=== PATIENT | male | born 1995 | race African-American/Black ===

== ENCOUNTER 2016-12-01 04:16 | Emergency (ER) | payer OTHER, MEDICAID ==
[~2016-12-01] VITALS: Ht 172.7 cm; Wt 53.5 kg
[~2016-12-01 04:16] MED LIST: ALBUTEROL SULF8.5 GM INH; ALBUTEROL2.5 MG/3 M INH; AZITHROMYCIN250 MG ORAL; PREDNISONE10 MG ORAL; PREDNISONE20 MG ORAL; PROAIR HFA8.5 GM INH; SINGULAIR10 MG ORAL; TYLENOL325 MG ORAL; ZITHROMAX250 MG ORAL
[2016-12-01] MEDS ORDERED: Albuterol ud Inhalation ONE (04:33)
[2016-12-01] MEDS ORDERED: Ipratropium 0.02% Inh Soln 2.5ml UD ONE (04:33)
[2016-12-01] MEDS ORDERED: PredniSONE 20mg tab ONE (04:34)
[2016-12-01 04:40] VITALS: BP 144/76
[2016-12-01] MEDS ORDERED: ALBUTEROL SULF8.5 GM INH (04:42)
[2016-12-01] MEDS ORDERED: DULERA 200 MCG/13 GM IH (04:42)
[2016-12-01] MEDS ORDERED: PREDNISONE20 MG ORAL (04:42)
--- NOTE | 2016-12-01 04:42 | Emergency Room Report ---
History of Present Illness General Chief Complaint: Asthma Source: Patient Present Illness HPI Is a 21-year-old male with history of asthma. He presents with chief complaint of asthma exacerbation. Onset for last couple days. He is out of his inhaler. Is asked was not well controlled. He goes through at least one to 2 inhalers a month. Not on a steroid inhaler. He thinks the cold weather is causing his asthma to act up. Denies any fever chills denies any nausea vomiting. Worse with inspiration and walking. Allergies: Coded Allergies: No Known Allergies (Unverified , 05/06/14) Patient History Past Medical History: see triage record, old chart reviewed, asthma Past Surgical History: none Pertinent Family History: none Social History: Denies: smoking Immunizations: other Reviewed Nursing Documentation: PMH: Agreed, PSxH: Agreed Nursing Documentation-PMH Past Medical History: No History, Except For Hx Asthma: Yes Review of Systems Eye: Denies: blurred vision, eye pain ENT: Denies: ear pain, nose congestion, throat swelling Respiratory: Reports: cough, shortness of breath, wheezing Cardiovascular: Denies: chest pain, palpitations Gastrointestinal: Denies: abdominal pain, diarrhea, nausea, vomiting Musculoskeletal: Denies: back pain, joint pain Skin: Denies: rash Neurological: Denies: headache, numbness Endocrine: Denies: increased thirst, increased urine Hematologic/Lymphatic: Denies: easy bruising All Other Systems: negative except mentioned in HPI Physical Exam Vital Signs Date Time Temp Pulse Resp B/P Pulse Ox O2 Delivery O2 Flow Rate FiO2 12/01/16 04:27 98.1 82 12 144/76 96 Room Air vitals normal Sp02 EP Interpretation: reviewed, normal General Appearance: well appearing, no apparent distress, alert Head: normocephalic, atraumatic Eyes: bilateral eye EOMI, bilateral eye PERRL ENT: hearing grossly normal, normal pharynx Neck: full range of motion, supple, no meningismus Respiratory: chest non-tender, wheezing Cardiovascular #1: regular rate, rhythm, no murmur Gastrointestinal: normal bowel sounds, non tender, no mass, no organomegaly, no bruit, non-distended Musculoskeletal: back normal, gait/station normal, normal range of motion Psychiatric: mood/affect normal Skin: warm/dry Medical Decision Making Diagnostic Impression: Primary Impression: Asthma attack ER Course Patient poorly controlled asthma. He has wheezing. This resulted treatment. We'll put on steroid. He will need a steroid inhaler also. No evidence of respiratory distress or pneumonia. Last Vital Signs Date Time Temp Pulse Resp B/P Pulse Ox O2 Delivery O2 Flow Rate FiO2 12/01/16 04:27 98.1 82 12 144/76 96 Room Air Status: improved Disposition: HOME, SELF-CARE Condition: Stable Scripts Mometasone/Formoterol (DULERA 200 MCG/5 MCG INHALER) 13 Gm Hfa.aer.ad 13 GM IH BID, #1 UNIT Prov: ECHO WELLS M.D. 12/01/16 Prednisone* (PREDNISONE*) 20 Mg Tablet 60 MG ORAL DAILY, #12 TAB Prov: ECHO WELLS M.D. 12/01/16 Albuterol Sulfate* (ALBUTEROL SULFATE MDI*) 8.5 Gm Hfa.aer.ad 2 PUFF INH Q4H Y for cough/wheezing, #1 EA 0 Refills Prov: ECHO WELLS M.D. 12/01/16 Patient Instructions: Asthma, Adult Additional Instructions: Followup your DrMichelle in 7 days. Return if symptom worsen. ECHO WELLS M.D. December 01, 2016 04:42
[2016-12-01] MEDS ORDERED: PredniSONE 20mg tab ORAL ONE (04:45)
[2016-12-01] MEDS ORDERED: Ipratropium 0.02% Inh Soln 2.5ml UD HHN ONE (04:45)
[2016-12-01] MEDS ORDERED: Albuterol ud Inhalation HHN ONE (04:45)
[2016-12-01 05:14] VITALS: BP 118/75
== END 2016-12-01 05:14 | disposition home or self-care (01) ==
LOC: EMR 04:52
DX: J45.901 Unspecified asthma with (acute) exacerbation (principal)
CPT/HCPCS: 94640; 94664; 99284

== ENCOUNTER 2017-05-16 13:43 | Emergency (ER) | payer MEDICAID, OTHER ==
[~2017-05-16] VITALS: Ht 172.7 cm; Wt 53.5 kg
[~2017-05-16 13:43] MED LIST changes: +DULERA 200 MCG/13 GM IH
[2017-05-16 13:47] VITALS: BP 127/82
[2017-05-16] MEDS ORDERED: Albuterol ud Inhalation HHN ONE ×2 (14:00→14:30)
--- NOTE | 2017-05-16 14:20 | Emergency Room Report ---
History of Present Illness General Chief Complaint: Upper Respiratory Illness Source: Patient, Medical Record Present Illness HPI 21YOM walk-in with 2 days of cough runny nose and chest tightness. Patient does not smoke, has known asthma, only uses rescue inhaler as needed for asthma attacks. Patient was here in November for similar asthma exacerbation. Was given dulera by Dr Ramon but took for 1 month then stopped when ran out. Denies fever/chills, chest pain. has not followed up with PMD since Allergies: Coded Allergies: No Known Allergies (Unverified , 05/06/14) Patient History Past Medical History: asthma Past Surgical History: none Pertinent Family History: none Social History: Denies: smoking, alcohol use, drug use Immunizations: UTD Reviewed Nursing Documentation: PMH: Agreed, PSxH: Agreed Nursing Documentation-PMH Past Medical History: No History, Except For Hx Asthma: Yes Review of Systems All Other Systems: negative except mentioned in HPI Physical Exam Vital Signs Date Time Temp Pulse Resp B/P (MAP) Pulse Ox O2 Delivery O2 Flow Rate FiO2 05/16/17 13:45 98.1 114 18 127/82 94 Room Air 05/16/17 14:07 21 Sp02 EP Interpretation: reviewed, abnormal General Appearance: normal inspection, well appearing, no apparent distress, alert, GCS 15, non-toxic, other - Sitting upright, speaking full sentences, using iphone Head: normocephalic, atraumatic ENT: normal ENT inspection, hearing grossly normal, normal voice Neck: normal inspection, full range of motion, supple, no bony tend Respiratory: normal inspection, lungs clear, normal breath sounds, no respiratory distress, no retraction, no accessory muscle use, no wheezing, speaking full sentences, wheezing Cardiovascular #1: regular rate, rhythm, no edema Gastrointestinal: normal inspection, normal bowel sounds, non tender, soft, no guarding, no hernia Genitourinary: no CVA tenderness Musculoskeletal: normal inspection, back normal, normal range of motion, Perri' s Sign negative Neurologic: normal inspection, alert, oriented x3, responsive, gas scrubber operator III-XII nml as tested, speech normal Psychiatric: normal inspection, judgement/insight normal, mood/affect normal Skin: normal inspection, normal color, no rash Medical Decision Making Diagnostic Impression: Primary Impression: Asthma attack Qualified Codes: J45.21 - Mild intermittent asthma with (acute) exacerbation Additional Impression: Upper respiratory infection Qualified Codes: J06.9 - Acute upper respiratory infection, unspecified ER Course VSS. Afebrile Mild hypoxia Afebrile, no fever/chills, unlikely PNA Likely URI as cause of asthma exacerbation Improved after 2 albuterol, prednisone Rx prednisone for 4 more days Refilled BR[facility] PMD followup Last Vital Signs Date Time Temp Pulse Resp B/P (MAP) Pulse Ox O2 Delivery O2 Flow Rate FiO2 05/16/17 14:07 112 20 98 Room Air 21 05/16/17 13:47 98.1 127/82 Status: improved Disposition: HOME, SELF-CARE ZARINA VILCHIS M.D. May 16, 2017 14:20
[2017-05-16] MEDS ORDERED: ALBUTEROL SULF8.5 GM INH (14:22)
[2017-05-16] MEDS ORDERED: PREDNISONE20 MG ORAL (14:22)
[2017-05-16] MEDS ORDERED: DULERA 200 MCG/13 GM IH (14:22)
[2017-05-16 14:34] VITALS: BP 120/75
== END 2017-05-16 14:34 | disposition home or self-care (01) ==
LOC: EMR 14:20
DX: J45.901 Unspecified asthma with (acute) exacerbation (principal); J06.9 Acute upper respiratory infection, unspecified
CPT/HCPCS: 94640; 99282

== ENCOUNTER 2017-07-13 00:31 | Emergency (ER) | payer OTHER ==
[~2017-07-13] VITALS: Ht 172.7 cm; Wt 53.5 kg
[2017-07-13 00:40] VITALS: BP 121/83
[2017-07-13] MEDS ORDERED: Albuterol/Ipratropium 3ml neb ONE (00:46)
[2017-07-13] MEDS ORDERED: Albuterol/Ipratropium 3ml neb HHN ONE (01:00)
[2017-07-13] MEDS ORDERED: DULERA 200 MCG/13 GM IH (01:11)
[2017-07-13] MEDS ORDERED: PREDNISONE20 MG ORAL (01:11)
[2017-07-13] MEDS ORDERED: ALBUTEROL SULF8.5 GM INH (01:11)
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
[2017-07-13 01:18] VITALS: BP 121/83
== END 2017-07-13 01:18 | disposition home or self-care (01) ==
LOC: EMR 00:48
DX: J45.21 Mild intermittent asthma with (acute) exacerbation (principal)
CPT/HCPCS: 94640; 99284; J7512; J7620

== ENCOUNTER 2017-10-10 03:10 | Emergency (ER) | payer OTHER ==
[~2017-10-10] VITALS: Ht 172.7 cm; Wt 53.5 kg
--- NOTE | 2017-10-10 03:15 | Emergency Room Report ---
History of Present Illness General Chief Complaint: To Be Triaged Source: Patient Present Illness HPI 22-year-old male with acute asthma exacerbation Resents with cough, chest tightness Ran out of home medication No recent URI, flulike symptoms, fever chills Multiple visits to ER for similar Allergies: Coded Allergies: No Known Allergies (Unverified , 05/06/14) Patient History Past Medical History: asthma Past Surgical History: none Pertinent Family History: none Social History: Denies: smoking, alcohol use, drug use Reviewed Nursing Documentation: PMH: Agreed; PSxH: Agreed Nursing Documentation-PMH Hx Asthma: Yes Review of Systems All Other Systems: negative except mentioned in HPI Physical Exam Sp02 EP Interpretation: reviewed, normal General Appearance: normal inspection, well appearing, no apparent distress, alert, GCS 15, non-toxic Head: normocephalic, atraumatic Eyes: bilateral eye PERRL, bilateral eye EOMI ENT: normal ENT inspection, hearing grossly normal, normal pharynx, no angioedema, normal voice, TMs + canals normal, uvula midline, moist mucus membranes Neck: normal inspection, full range of motion, supple, thyroid normal, no meningismus, no bony tend Respiratory: normal inspection, lungs clear, normal breath sounds, no rhonchi, no respiratory distress, no retraction, no accessory muscle use, speaking full sentences, wheezing Cardiovascular #1: regular rate, rhythm, no edema, no JVD, normal capillary refill Gastrointestinal: normal inspection, normal bowel sounds, non tender, soft, no mass, no peritonitis, non-distended, no guarding, no hernia, no pulsatile mass Genitourinary: no CVA tenderness Musculoskeletal: normal inspection, back normal, normal range of motion, no calf tenderness, pelvis stable, Perri's Sign negative Neurologic: normal inspection, alert, oriented x3, responsive, ash collector III-XII nml as tested, motor strength/tone normal, cerebellar normal, normal gait, speech normal Psychiatric: normal inspection, judgement/insight normal, mood/affect normal, no suicidal/homicidal ideation, no delusions Skin: normal inspection, normal color, no rash Lymphatic: normal inspection, no adenopathy Medical Decision Making Diagnostic Impression: Primary Impression: Asthma attack Qualified Codes: J45.21 - Mild intermittent asthma with (acute) exacerbation ER Course Vital signs stable, afebrile Mild wheezing on exam No tachypnea, hypoxia Low suspicion for acute pneumonia, sepsis improved with nebs steroids ER course: Patient has remained stable during ED stay. Disposition: Patient is to be discharged to home. Prescriptions given are ventolin, prednisone, advair Patient is instructed to follow up with their primary care doctor within 5 days. Strict return precautions discussed with patient such as fever, chills, worsening/severe pain, nausea, vomiting, which may indicate severe illness. Patient verbalizes understanding and agrees with plan. Please note that this Emergency Department Report was dictated using [employer] inspector technology software, occasionally this can lead to erroneous entry secondary to interpretation by the dictation equipment Status: improved Disposition: HOME, SELF-CARE Scripts Albuterol Sulfate (VENTOLIN HFA) 18 Gm Hfa.aer.ad 1 PUFF INH EVERY 6 HOURS, #18 GM 0 Refills Prov: ZARINA VILCHIS M.D. 10/10/17 Prednisone* (PREDNISONE*) 20 Mg Tablet 40 MG ORAL DAILY for 5 Days, #10 TAB Prov: ZARINA VILCHIS M.D. 10/10/17 Fluticasone/Salmeterol (Advair 100-50 Diskus) 1 Each Blst.w.dev 1 PUFF INH TWICE A DAY for 30 Days, #1 EA Prov: ZARINA VILCHIS M.D. 10/10/17 ZARINA VILCHIS M.D. Oct 10, 2017 03:15
[2017-10-10] MEDS ORDERED: VENTOLIN HFA18 GM INH (03:16)
[2017-10-10] MEDS ORDERED: ADVAIR 100-501 EACH INH (03:16)
[2017-10-10] MEDS ORDERED: PREDNISONE20 MG ORAL (03:16)
[2017-10-10 03:29] VITALS: BP 121/80
[2017-10-10] MEDS ORDERED: Albuterol ud Inhalation HHN ONE (03:30)
== END 2017-10-10 03:40 | disposition home or self-care (01) ==
LOC: EMR 03:15
DX: J45.901 Unspecified asthma with (acute) exacerbation (principal)
CPT/HCPCS: 94640; 99284; J7512

== ENCOUNTER 2018-05-28 02:02 | Emergency (ER) | payer OTHER ==
[~2018-05-28] VITALS: Ht 172.7 cm; Wt 53.5 kg
[~2018-05-28 02:02] MED LIST changes: +ADVAIR 100-501 EACH INH; +VENTOLIN HFA18 GM INH
[2018-05-28 02:15] VITALS: BP 135/93
[2018-05-28] MEDS ORDERED: ALBUTEROL SULF8.5 GM INH (02:37)
[2018-05-28] MEDS ORDERED: SPIRIVA18 MCG INH (02:37)
[2018-05-28] MEDS ORDERED: PREDNISONE20 MG ORAL (02:38)
--- NOTE | 2018-05-28 02:38 | Emergency Room Report ---
History of Present Illness General Chief Complaint: Asthma Source: Patient Present Illness HPI Is a 22-year-old male who has a history of asthma. He goes to one albuterol inhaler a month. He presents with chief complaint of shortness of breath. Started tonight. He is out of his inhaler for about a week. No fever or chills. No nausea no vomiting. Worse with exertion. Similar symptom in the past. No chest pain. No cough or congestion. Not on steroid inhaler. Allergies: Coded Allergies: No Known Allergies (Unverified , 05/06/14) Patient History Past Medical History: see triage record, old chart reviewed Past Surgical History: none Pertinent Family History: none Social History: Denies: smoking Immunizations: other Reviewed Nursing Documentation: PMH: Agreed; PSxH: Agreed Nursing Documentation-PMH Hx Asthma: Yes Review of Systems Eye: Denies: eye pain, blurred vision ENT: Denies: ear pain, nose congestion, throat swelling Respiratory: Reports: shortness of breath, wheezing Cardiovascular: Denies: chest pain, palpitations Gastrointestinal: Denies: abdominal pain, diarrhea, nausea, vomiting Musculoskeletal: Denies: back pain, joint pain Skin: Denies: rash Neurological: Denies: headache, numbness Endocrine: Denies: increased thirst, increased urine Hematologic/Lymphatic: Denies: easy bruising All Other Systems: negative except mentioned in HPI Physical Exam Vital Signs Date Time Temp Pulse Resp B/P (MAP) Pulse Ox O2 Delivery O2 Flow Rate FiO2 05/28/18 02:16 98.4 91 14 135/98 98 Room Air vitals normal Sp02 EP Interpretation: reviewed, normal General Appearance: well appearing, no apparent distress, alert Head: normocephalic, atraumatic Eyes: bilateral eye PERRL, bilateral eye EOMI ENT: hearing grossly normal, normal pharynx Neck: full range of motion, supple, no meningismus Respiratory: chest non-tender, normal breath sounds, decreased breath sounds, accessory muscle use, wheezing Cardiovascular #1: regular rate, rhythm, no murmur Gastrointestinal: normal bowel sounds, non tender, no mass, no organomegaly, no bruit, non-distended Musculoskeletal: back normal, gait/station normal, normal range of motion Psychiatric: mood/affect normal Skin: warm/dry Medical Decision Making Diagnostic Impression: Primary Impression: Asthma exacerbation, mild ER Course Patient with asthma exacerbation. Better after neb treatment. No evidence of PE, ACS, dissection to name a few. We'll discharge home. Last Vital Signs Date Time Temp Pulse Resp B/P (MAP) Pulse Ox O2 Delivery O2 Flow Rate FiO2 05/28/18 02:16 98.4 91 14 135/98 98 Room Air Status: improved Disposition: HOME, SELF-CARE Condition: Stable Scripts Prednisone* (PREDNISONE*) 20 Mg Tablet 60 MG ORAL DAILY, #12 TAB Prov: Roger Ramon MD 05/28/18 Tiotropium [place]* (SPIRIVA*) 18 Mcg Cap.w.dev 1 PUFF INH DAILY, #1 EA Prov: Roger Ramon MD 05/28/18 Albuterol Sulfate* (ALBUTEROL SULFATE MDI*) 8.5 Gm Hfa.aer.ad 2 PUFF INH Q4H PRN for cough/wheezing, #1 EA 0 Refills Prov: Roger Ramon MD 05/28/18 Patient Instructions: Asthma, Adult Additional Instructions: Follow-up with your doctor in 5-7 days. Return if symptom worsen. Roger Ramon MD May 28, 2018 02:38
[2018-05-28] MEDS ORDERED: Albuterol/Ipratropium 3ml neb HHN ONE (02:45)
[2018-05-28 02:54] VITALS: BP 135/98
== END 2018-05-28 02:54 | disposition home or self-care (01) ==
LOC: EMR 02:38
DX: J45.901 Unspecified asthma with (acute) exacerbation (principal)
CPT/HCPCS: 94640; 99284; J7512; J7620

== ENCOUNTER 2019-05-23 02:43 | Emergency (ER) | payer OTHER ==
[~2019-05-23] VITALS: Ht 172.7 cm; Wt 54.9 kg
[~2019-05-23 02:43] MED LIST changes: +SPIRIVA18 MCG INH
--- NOTE | 2019-05-23 02:56 | NUR ---
ED Nurse Note: pt prsents to ED with chest tightness and SOB. pt has a h/o asthma and has been out of his inhaler for 3 weeks. pt reports feeling the chest tightness x 1 week. it is worse at night when he is trying to sleep. pt denies any pain or other symptoms at this time. pt has wheezes bilaterally on ausculatiion. upon expiration on the R and with both inspiration and expiration on the L side Addendum: 05/23/19 at 0308 by STUART pt SpO2 is 98% on room air, he is able to speak full sentences
[2019-05-23 03:00] VITALS: BP 128/73
[2019-05-23] MEDS ORDERED: Albuterol/Ipratropium 3ml neb HHN ONE (03:00)
--- NOTE | 2019-05-23 03:02 | NUR ---
ED Nurse Note: respiratory therapy is at pt's bedside for a breathing treatment
[2019-05-23] MEDS ORDERED: PREDNISONE20 MG ORAL (03:06)
[2019-05-23] MEDS ORDERED: ALBUTEROL SULF8.5 GM INH (03:06)
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
--- NOTE | 2019-05-23 03:18 | NUR ---
ED Nurse Note: pt has finished breathing treatment, lungs sound clear bilaterally. even and unlabored breathing, SpO2 is 100% on room air
[2019-05-23 03:20] VITALS: BP 128/73
--- NOTE | 2019-05-23 03:25 | NUR ---
ED Nurse Note: Pt cleared by health care Provider for discharge. DC instructions/prescription was given and explained to pt who verbalized understanding of teachings. All medical deviecs such as ID band removed. Pt is AAO x4, ambulatory and left with all personal belongings.
== END 2019-05-23 03:25 | disposition home or self-care (01) ==
LOC: EMR 03:00
DX: J45.21 Mild intermittent asthma with (acute) exacerbation (principal); Z79.51 Long term (current) use of inhaled steroids
CPT/HCPCS: 94640; 99284; J7512; J7620

== ENCOUNTER 2019-10-03 03:15 | Emergency (ER) | payer OTHER ==
[~2019-10-03] VITALS: Ht 172.7 cm; Wt 54.0 kg
--- NOTE | 2019-10-03 03:24 | NUR ---
ED Nurse Note: Pt ambulated to ED from home c/o sore throat and sins pressure x3 days, denies fever/cough. VSS pt has been taking sudphed at home without relief
[2019-10-03 03:25] VITALS: BP 138/94
[2019-10-03 03:45] VITALS: BP 138/94
--- NOTE | 2019-10-03 03:45 | NUR ---
ER DISCHARGE NOTE: Patient is cleared to be discharged per ERMD, pt is aox4, on room air, with stable vital signs. pt was given dc and prescription instructions, pt was able to verbalize understanding, pt id band removed. pt is able to ambulate with steady gait. pt took all belongings.
--- NOTE | 2019-10-03 04:51 | Emergency Room Report ---
History of Present Illness General Chief Complaint: Sore Throat Source: Patient Present Illness HPI 24-year-old male presents ED complaining of sore throat x2 days. Pain is dull, 5 out of 10, nonradiating. Denies cough. Notes congestion. Denies fevers or chills. Denies sick contacts or recent travel. No other aggravating relieving factors. Denies any other associated symptoms COVID-19 risk:Travel to affect: No Allergies: Coded Allergies: No Known Allergies (Unverified , 05/06/14) Patient History Past Medical History: asthma Past Surgical History: none Pertinent Family History: none Social History: Denies: smoking, alcohol use, drug use Immunizations: UTD Reviewed Nursing Documentation: PMH: Agreed; PSxH: Agreed Nursing Documentation-PMH Hx Asthma: Yes Review of Systems All Other Systems: negative except mentioned in HPI Physical Exam Vital Signs Date Time Temp Pulse Resp B/P (MAP) Pulse Ox O2 Delivery O2 Flow Rate FiO2 10/03/19 03:16 98.8 80 18 138/94 (109) 99 Room Air Sp02 EP Interpretation: reviewed, normal General Appearance: no apparent distress, alert, GCS 15, non-toxic Head: normocephalic, atraumatic Eyes: bilateral eye normal inspection, bilateral eye PERRL ENT: hearing grossly normal, normal pharynx, no angioedema, normal voice Neck: full range of motion, supple/symm/no masses Respiratory: chest non-tender, lungs clear, normal breath sounds, speaking full sentences Cardiovascular #1: regular rate, rhythm, no edema Cardiovascular #2: 2+ carotid (R), 2+ carotid (L), 2+ radial (R), 2+ radial (L) , 2+ dorsalis pedis (R), 2+ dorsalis pedis (L) Gastrointestinal: normal bowel sounds, non tender, soft, non-distended, no guarding, no rebound Rectal: deferred Genitourinary: normal inspection, no CVA tenderness Musculoskeletal: back normal, normal range of motion, gait/station normal, non- tender Neurologic: alert, motor strength/tone normal, oriented x3, sensory intact, responsive, speech normal Psychiatric: judgement/insight normal, memory normal, mood/affect normal, no suicidal/homicidal ideation Reflexes: 3+ bicep (R), 3+ bicep (L), 3+ tricep (R), 3+ tricep (L), 3+ knee (R) , 3+ knee (L) Lymphatic: no adenopathy Medical Decision Making Diagnostic Impression: Primary Impression: URI (upper respiratory infection) Qualified Codes: J06.9 - Acute upper respiratory infection, unspecified ER Course Hospital Course 24 yo M presents c/o congestion, sore throat Differential diagnoses include: URI, pharyngitis, otitis media, asthma Clinical course Patient placed on stretcher. After initial history, physical exam reveals a male in no acute distress. Bilateral TM unremarkable. No pharyngeal erythema. No tonsillar exudates. No lymphadenopathy. lungs clear. abdomen soft. Clinical findings consistent with URI. Reassurance given. course is viral and self-limited. Patient afebrile, nontoxic-appearing. Safe for discharge with close outpatient follow-up. I will provide referrals Diagnosis - URI Stable and discharged home. Instructed to followup with PMD. Return to ED if symptoms recur or worsen Last Vital Signs Date Time Temp Pulse Resp B/P (MAP) Pulse Ox O2 Delivery O2 Flow Rate FiO2 10/03/19 03:45 98.8 77 18 138/94 99 Room Air Status: improved Disposition: HOME, SELF-CARE Condition: Stable Referrals: FINN MCCORMICK,REFERRING (PCP) [facility] Patient Instructions: Upper Respiratory Infection, Adult, [id number] Fly Lopez MD Oct 03, 2019 04:51
== END 2019-10-03 03:45 | disposition home or self-care (01) ==
LOC: EMR 03:40
DX: J06.9 Acute upper respiratory infection, unspecified (principal)
CPT/HCPCS: 99281

== ENCOUNTER 2020-03-19 22:32 | Emergency (ER) | payer OTHER ==
[~2020-03-19] VITALS: Ht 172.7 cm; Wt 54.4 kg
--- NOTE | 2020-03-19 22:44 | NUR ---
ED Nurse Note: Pt ambulated to ED from home c/o blood in his stool starting today, denies fever/N/V or diarrhea or abdominal pain. Pt denies having these symptoms previously. PT SERGEI FUENTES at bedside
--- NOTE | 2020-03-19 22:51 | Emergency Room Report ---
History of Present Illness General Chief Complaint: Gastrointestinal Illness Source: Patient Present Illness HPI This is a 24-year-old male with a history of asthma. He presents with chief complaint of blood in his stool. He said the last couple day he had some hard stool. Tonight he had a bowel movement and when he looked into the toilet bowl , he saw that stool was very dark and there was blood around it. He denies any pain. Denies any trauma. No fever chills but no nausea no vomiting. No epigastric pain. Nothing made it better. Nothing made it worse. This the first time this happened to him. Allergies: Coded Allergies: No Known Allergies (Unverified , 05/06/14) COVID-19 Screening Contact w/high risk pt: No Experienced COVID-19 symptoms?: No COVID-19 Testing performed [employer] CON[employer]OR [employer]T REPAIRER: No Patient History Past Medical History: see triage record, old chart reviewed, asthma Past Surgical History: none Pertinent Family History: none Social History: Denies: smoking Immunizations: other Reviewed Nursing Documentation: PMH: Agreed; PSxH: Agreed Nursing Documentation-PMH Hx Asthma: Yes Review of Systems Eye: Denies: eye pain, blurred vision ENT: Denies: ear pain, nose congestion, throat swelling Respiratory: Denies: cough, shortness of breath Cardiovascular: Denies: chest pain, palpitations Gastrointestinal: Denies: abdominal pain, diarrhea, nausea, vomiting Musculoskeletal: Denies: back pain, joint pain Skin: Denies: rash Neurological: Denies: headache, numbness Endocrine: Denies: increased thirst, increased urine Hematologic/Lymphatic: Denies: easy bruising All Other Systems: negative except mentioned in HPI Physical Exam Vital Signs Date Time Temp Pulse Resp B/P (MAP) Pulse Ox O2 Delivery O2 Flow Rate FiO2 03/19/20 22:34 97.9 85 16 149/77 (101) 98 Room Air Vitals with high blood pressure Sp02 EP Interpretation: reviewed, normal General Appearance: well appearing, no apparent distress, alert Head: normocephalic, atraumatic Eyes: bilateral eye PERRL, bilateral eye EOMI ENT: hearing grossly normal, normal pharynx Neck: full range of motion, supple, no meningismus Respiratory: chest non-tender, lungs clear, normal breath sounds Cardiovascular #1: regular rate, rhythm, no murmur Gastrointestinal: normal bowel sounds, non tender, no mass, no organomegaly, no bruit, non-distended Rectal: normal rectal tone, other - Rectal exam showed normal tone. Stool is dark and there is blood on the stool. Musculoskeletal: back normal, normal range of motion, gait/station normal Psychiatric: mood/affect normal Medical Decision Making Diagnostic Impression: Primary Impression: Rectal bleeding ER Course Patient presents with rectal bleeding. May be internal hemorrhoid. Hemoglobin stable. No evidence of upper GI bleeding. Will discharge home. Last Vital Signs Date Time Temp Pulse Resp B/P (MAP) Pulse Ox O2 Delivery O2 Flow Rate FiO2 03/19/20 22:34 97.9 85 16 149/77 (101) 98 Room Air Status: improved Disposition: HOME, SELF-CARE Condition: Stable Scripts Hydrocortisone Acetate* (ANUSOL-HC*) 25 Mg Supp.rect 1 SUPP RECTAL TWICE A DAY, #7 SUPP Prov: Roger Ramon MD 03/19/20 Additional Instructions: Increase fiber. Follow-up with your doctor in 7 days. You may need referral to see colorectal surgeon if continue to have rectal bleeding. Return if worse. Roger Ramon MD Mar 19, 2020 22:51
[2020-03-19 23:01] LABS: BASOPHILS % (AUTO) 1.6 % (0.0-2.0); EOSINOPHILS % (AUTO) 4.4 % (0.0-3.0); HEMOGLOBIN 16.3 G/DL (14.2-18.0); LYMPHOCYTES % (AUTO) 47.3 % (20.0-45.0); MEAN CORPUSCULAR VOLUME 86 FL (80-99); MONOCYTES % (AUTO) 8.1 % (1.0-10.0); NEUTROPHILS % (AUTO) 38.6 % (45.0-75.0); PLATELET COUNT 204 K/UL (150-450); RED BLOOD COUNT 5.58 M/UL (4.70-6.10); RED CELL DISTRIBUTION WIDTH 11.7 % (11.6-14.8); WHITE BLOOD COUNT 5.2 K/UL (4.8-10.8)
[2020-03-19 23:02] VITALS: BP 149/77
--- NOTE | 2020-03-19 23:02 | NUR ---
ED Nurse Note: Blood sent to lab
[2020-03-19] MEDS ORDERED: ANUSOL-HC25 MG RECTAL (23:41)
[2020-03-19 23:49] VITALS: BP 132/70
== END 2020-03-19 23:50 | disposition home or self-care (01) ==
LOC: CANBEDREQ 22:49 → EMR 23:00
DX: K62.5 Hemorrhage of anus and rectum (principal)
CPT/HCPCS: 36415; 85025; 99283

== ENCOUNTER 2020-06-22 09:29 | Emergency (ER) | payer OTHER ==
[~2020-06-22] VITALS: Ht 172.7 cm; Wt 53.5 kg
[~2020-06-22 09:29] MED LIST changes: +ANUSOL-HC25 MG RECTAL
[2020-06-22 09:45] VITALS: BP 129/88
--- NOTE | 2020-06-22 09:46 | NUR ---
ED Nurse Note: Patient walked in to ED c/o sinus infection x4 days after eating dairy products. Pt is allergic to dairy. Reports chest congestion. nad noted, vss, calm and cooperative. denies pain at this time. o2 100% on room air, respirations even and unlabored, no cough.
[2020-06-22] MEDS ORDERED: NASONEX17 GM NASAL (10:05)
--- NOTE | 2020-06-22 10:09 | NUR ---
ED Nurse Note: Patient cleared by health care Provider for discharge. DC instructions was given and explained to pt and verbalized understanding of teachings. All medical deviecs such as ID band removed. Pt is AAO x4, ambulatory and left with all personal belongings.
--- NOTE | 2020-06-22 10:11 | Emergency Room Report ---
History of Present Illness General Chief Complaint: Upper Respiratory Illness Source: Patient Present Illness HPI Is a 24-year-old male presents for increased nasal congestion. Onset of symptoms with the past few days. Increased nasal discharge. Patient been using [id number] nasal saline. Denies any fever or weakness. Prior history of asthma as well as allergic lactose intolerance. Reports having a recent dairy intake. Thinks that this may have exacerbated the nasal congestion. Denies any fever. Reports having intermittent increased phlegm production. No facial pain. 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 Patient History Past Medical History: see triage record Reviewed Nursing Documentation: PMH: Agreed; PSxH: Agreed Nursing Documentation-PMH Hx Asthma: Yes Review of Systems All Other Systems: negative except mentioned in HPI Physical Exam Vital Signs Date Time Temp Pulse Resp B/P (MAP) Pulse Ox O2 Delivery O2 Flow Rate FiO2 06/22/20 09:36 98.6 98 19 129/88 (102) 98 Room Air Sp02 EP Interpretation: reviewed, normal General Appearance: normal inspection, well appearing, no apparent distress, alert, GCS 15 Head: atraumatic ENT: normal ENT inspection, hearing grossly normal, normal voice, other - Increased nasal congestion without evidence of discharge. No sinus tenderness noted. Neck: normal inspection, full range of motion, supple, no bony tend Respiratory: normal inspection, lungs clear, normal breath sounds, no respiratory distress, no retraction, no wheezing Cardiovascular #1: regular rate, rhythm, no edema Gastrointestinal: normal inspection, normal bowel sounds, non tender, soft, no guarding, no hernia Genitourinary: no CVA tenderness Musculoskeletal: normal inspection, back normal, normal range of motion Neurologic: alert, responsive, speech normal, normal inspection Psychiatric: normal inspection, judgement/insight normal, mood/affect normal Medical Decision Making Diagnostic Impression: Primary Impression: Allergic rhinitis ER Course Patient presented for increased nasal congestion. Differential diagnosis include is not limited to allergic rhinitis, sinusitis, upper respiratory infection, coronavirus infection among others. Patient has a benign exam and does not appear to require any imaging or laboratory testing at this time. Last Vital Signs Date Time Temp Pulse Resp B/P (MAP) Pulse Ox O2 Delivery O2 Flow Rate FiO2 06/22/20 09:45 98 19 Room Air 06/22/20 09:45 98.6 129/88 98 Status: improved Disposition: HOME, SELF-CARE Condition: Stable Scripts Mometasone Furoate (NASONEX) 17 Gm [place].pump 2 SPRAYS NASAL DAILY, #1 GM 0 Refills Prov: Demond Loredo MD 06/22/20 Patient Instructions: Allergic Rhinitis Additional Instructions: Follow up with your doctor for recheck. Return if worse. Demond Loredo MD Jun 22, 2020 10:11
== END 2020-06-22 10:10 | disposition home or self-care (01) ==
LOC: EMR 10:10
DX: J45.909 Unspecified asthma, uncomplicated (principal); Z91.011 Allergy to milk products
CPT/HCPCS: 99282

== ENCOUNTER 2020-07-13 00:48 | Emergency (ER) | payer OTHER ==
[~2020-07-13] VITALS: Ht 172.7 cm; Wt 53.5 kg
[~2020-07-13 00:48] MED LIST changes: +NASONEX17 GM NASAL
--- NOTE | 2020-07-13 00:55 | NUR ---
ED Nurse Note: pt walked into ED from home c/o fatigue and weakness. Pt stated he woke up with HATCH and felt excessively tired. Pt denies fever, chills, n/v/d. Pt reports he took Mucinex and other OTC flu medication before coming into ED. Pt is AAOx4, breathing even and unlabored. Vital signs stable.
--- NOTE | 2020-07-13 00:55 | NUR ---
Note reuben in EDM - 07/13/20 at 0129 by JOSE F ED Nurse Note: Patient walked into ED c/o generalized weakness, patient reports of suddenly feeling faint and weakness accompanied by a mild headache onset earlier today. patient then reported that he took 3 over the counter medications for headache and initially felt better however came to ED due to wanting to be seen my a doctor.
[2020-07-13 00:57] VITALS: BP 138/88
--- NOTE | 2020-07-13 01:15 | Emergency Room Report ---
History of Present Illness General Chief Complaint: Generalized Weakness Source: Patient Present Illness HPI Is a 25-year-old male with no past medical history. He presents with chief complaint of weakness. Onset tonight. It comes in waves. He denies any nausea vomiting or diarrhea. Denies any cough or congestion. He said he did have a cough headache that he took 3 [id number] headache medication. He felt stuffiness so he took some Mucinex. He said he is eating drinking normally. Checked his temperature and it was normal. No change with standing or exertion. No chest pain. No other complaint. 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 Patient History Past Medical History: see triage record, old chart reviewed Past Surgical History: none Pertinent Family History: none Social History: Denies: smoking Immunizations: other Reviewed Nursing Documentation: PMH: Agreed; PSxH: Agreed Nursing Documentation-PMH Past Medical History: No Stated History Hx Asthma: Yes Review of Systems Constitutional: Reports: weakness Eye: Denies: eye pain, blurred vision ENT: Denies: ear pain, nose congestion, throat swelling Respiratory: Denies: cough, shortness of breath Cardiovascular: Denies: chest pain, palpitations Gastrointestinal: Denies: abdominal pain, diarrhea, nausea, vomiting Musculoskeletal: Denies: back pain, joint pain Skin: Denies: rash Neurological: Denies: headache, numbness Endocrine: Denies: increased thirst, increased urine Hematologic/Lymphatic: Denies: easy bruising All Other Systems: negative except mentioned in HPI Physical Exam Vital Signs Date Time Temp Pulse Resp B/P (MAP) Pulse Ox O2 Delivery O2 Flow Rate FiO2 07/13/20 00:52 98.2 80 15 152/101 (118) 97 Room Air Vitals with high blood pressure Sp02 EP Interpretation: reviewed, normal General Appearance: well appearing, no apparent distress, alert Head: normocephalic, atraumatic Eyes: bilateral eye PERRL, bilateral eye EOMI ENT: hearing grossly normal, normal pharynx Neck: full range of motion, supple, no meningismus Respiratory: chest non-tender, lungs clear, normal breath sounds Cardiovascular #1: regular rate, rhythm, no murmur Gastrointestinal: normal bowel sounds, non tender, no mass, no organomegaly, no bruit, non-distended Musculoskeletal: back normal, normal range of motion, gait/station normal Psychiatric: mood/affect normal Medical Decision Making Diagnostic Impression: Primary Impression: Episode of generalized weakness ER Course Presents with generalized weakness. No evidence of any infection. No anemia. [place] better now. Will discharge home. Last Vital Signs Date Time Temp Pulse Resp B/P (MAP) Pulse Ox O2 Delivery O2 Flow Rate FiO2 07/13/20 00:57 98.2 86 15 138/88 97 Room Air Status: improved Disposition: HOME, SELF-CARE Condition: Stable Referrals: FINN MCCORMICK,REFERRING (PCP) Patient Instructions: Weakness Additional Instructions: Follow-up with your doctor in 7 days. Return if symptoms worsen. Roger Ramon MD Jul 13, 2020 01:15
--- NOTE | 2020-07-13 01:25 | NUR ---
ED Nurse Note: blood collected and sent to lab
[2020-07-13 01:31] LABS: BASOPHILS % (AUTO) 1.4 % (0.0-2.0); HEMATOCRIT 42.5 % (42.0-52.0); HEMOGLOBIN 15.5 G/DL (14.2-18.0); LYMPHOCYTES % (AUTO) 45.5 % (20.0-45.0); MEAN CORPUSCULAR VOLUME 81 FL (80-99); NEUTROPHILS % (AUTO) 44.1 % (45.0-75.0); PLATELET COUNT 221 K/UL (150-450); RED BLOOD COUNT 5.25 M/UL (4.70-6.10); RED CELL DISTRIBUTION WIDTH 13.4 % (11.6-14.8)
[2020-07-13 01:41] LABS: ANION GAP 7 mmol/L (5-15); BLOOD UREA NITROGEN 16 mg/dL (7-18); CALCIUM 9.2 MG/DL (8.5-10.1); CARBON DIOXIDE 28 MMOL/L (21-32); CHLORIDE 103 MMOL/L (98-107); CREATININE 1.1 MG/DL (0.55-1.30); POTASSIUM 3.5 MMOL/L (3.5-5.1); SODIUM 138 MMOL/L (136-145)
[2020-07-13 02:00] VITALS: BP 116/67
--- NOTE | 2020-07-13 02:00 | NUR ---
ER DISCHARGE NOTE: Patient is cleared to be discharged per ERMD, pt is aox4, on room air, with stable vital signs. pt was given dc instructions, pt was able to verbalize understanding, pt id band removed. pt is able to ambulate with steady gait. pt took all belongings.
== END 2020-07-13 02:00 | disposition home or self-care (01) ==
LOC: EMR 01:08
DX: R53.1 Weakness (principal); J45.909 Unspecified asthma, uncomplicated; Z91.011 Allergy to milk products
CPT/HCPCS: 36415; 80048; 85025; 99283